=== PATIENT | male | born 1960 | race Caucasian/White ===

== ENCOUNTER 2025-08-09 10:03 | Outpatient (CLI) | payer OTHER, SELFPAY ==
--- NOTE | ~2025-08-09 | XR_ITS ---
EXAMINATION: XR sacroiliac joints min 3V, 08/09/2025 10:30 [employer] [employer] HISTORY: LOW BACK PAIN COMPARISON: No comparisons available. Findings: No acute fracture or malalignment. No significant degenerative changes. Soft tissues unremarkable. Impression: No acute fracture or malalignment. Reviewed, dictated and finalized at location P. LTY [employer]ICE Impression: No acute fracture or malalignment.
--- NOTE | ~2025-08-09 | XR_ITS ---
XR lumbar spine min 4V Indication: LOW BACK PAIN Comparison: None Findings: The vertebral heights are intact. No fracture or subluxation. The disc heights are intact. Soft tissues unremarkable Impression: No acute abnormality. Reviewed, dictated and finalized at location P. TH EDUCATION ASSISTANT Impression: No acute abnormality.
== END 2025-08-09 10:04 | disposition home or self-care (01) ==
LOC: MICIMG 10:11
PROVIDERS: PCP Internal Medicine; Visit Provider Internal Medicine
DX: M54.50 Low back pain, unspecified (principal); M25.559 Pain in unspecified hip
CPT/HCPCS: 72110; 72202

== ENCOUNTER 2025-08-14 09:50 | Outpatient (CLI) | payer OTHER, SELFPAY ==
--- NOTE | ~2025-08-14 | XR_ITS ---
EXAMINATION: XR hip LT min 2V, 08/14/2025 9:55 DIRECTOR LEARNING HISTORY: Hip pain COMPARISON: No comparisons available. Findings: No acute fracture or malalignment. No significant degenerative changes. Soft tissues unremarkable. Impression: No acute fracture or malalignment. Reviewed, dictated and finalized at location P. CTOR LEARNING Impression: No acute fracture or malalignment.
== END 2025-08-14 09:51 | disposition home or self-care (01) ==
LOC: MICIMG 09:52
PROVIDERS: PCP Internal Medicine; Visit Provider Internal Medicine
DX: M25.552 Pain in left hip (principal)
CPT/HCPCS: 73502